=== PATIENT | male | born 1965 | race Caucasian/White ===

== ENCOUNTER → 2021-04-17 15:30 | Outpatient (CLI) | payer BC, SELFPAY ==
--- NOTE | ~2021-04-17 | XR_ITS ---
EXAMINATION: XR chest 2V DATE: 04/17/2021 16:07 INDICATION: Unspecified acute lower respiratory infection. TECHNIQUE: Frontal and lateral views of the chest were obtained. COMPARISON: None. FINDINGS: The chest demonstrates clear lungs without pneumonia, pleural effusion, or pneumothorax. Th e heart size is normal. IMPRESSION: 1. No acute cardiopulmonary disease. Reviewed, dictated and finalized at location A. MIXING OPERATOR
== END ==
PROVIDERS: Visit Provider Physician Assistant
DX: J22 Unspecified acute lower respiratory infection (principal)
CPT/HCPCS: 71046

== ENCOUNTER 2022-02-23 21:57 | Emergency (ER) | payer BC, SELFPAY ==
--- NOTE | ~2022-02-23 | CT_ITS ---
EXAMINATION: CT abdomen pelvis w con DATE: 02/24/2022 01:12 INDICATION: Right lower quadrant abdominal pain. TECHNIQUE: Computed tomography (CT) of the abdomen and pelvis was performed with 100 mL Omnipaque 350 intravenous contrast. Automated exposure control and iterative reconstruction technique were employe d. The dose-length product was 409.23 mGy-cm. COMPARISON: None. FINDINGS: The visualized portions of the lung bases demonstrate mild atelectasis. No pleural effusion . The heart size is normal. No pericardial effusion. There is a small sliding hiatal hernia. There ar e cysts in the liver measuring up to 2.3 cm. There are gallstones in the gallbladder. The spleen, palmer creas, adrenal glands, and left kidney are normal. There is a 4 mm cyst in right kidney. There is a l eft inguinal hernia containing fat. There are no dilated loops of bowel. The appendix is normal. Ther e are no pathologically enlarged lymph nodes. There is no free intraperitoneal fluid. There is mild l umbar spondylosis. There is a hemangioma in L1 vertebral body. IMPRESSION: 1. Cholelithiasis. 2. Small sliding hiatal hernia. Reviewed, dictated and finalized at location A. SYSTEMS ENGINEER
[2022-02-23 21:59] VITALS: BP 163/95; PULSE 78; RESP 20; TEMP 36.5; O2SAT 100
[2022-02-23 22:11] LABS: Basophils Percent Auto 0.3 % (0.2-1.2); Eosinophils Absolute Auto 0.6 K/mm3 (0-0.3); Eosinophils Percent Auto 6.2 % (0-4.4); Hematocrit 43.7 % (42.0-52.0); Hemoglobin 14.7 g/dL (14.0-18.0); Immature Granulocyte Absolute 0.03 K/mm3 (0.00-0.031); Immature Granulocyte Percent A 0.3 % (0-0.5); Lymphocytes Absolute Auto 3.19 K/mm3 (0.9-3.2); Lymphocytes Percent Auto 32.9 % (18.3-44.2); Mean Corpuscular HGB Conc 33.6 g/dl (32-36); Mean Corpuscular Hemoglobin 28.7 pg (26-34); Mean Corpuscular Volume 85.4 fl (80-100); Mean Platelet Volume 9.4 fl (7.4-10.4); Monocytes Absolute Auto 0.9 K/mm3 (0.1-0.6); Monocytes Percent Auto 9.5 % (2.6-8.5); Neutrophils Absolute Auto 4.9 K/mm3 (1.3-6.7); Neutrophils Percent Auto 50.8 % (45.5-73.1); Platelet Count Result 250 k/mm3 (150-375); Red Blood Count 5.12 M/mm3 (4.6-6.20); White Blood Count 9.7 K/mm3 (4.5-10.0)
[2022-02-23 22:15] LABS: Appearance Urine Clear (Clear); Bilirubin Urine 1+ (Negative); Blood Urine Negative (Negative); Color Urine Yellow (Yellow); Glucose Urine UA Negative (Negative); Ketones Urine Trace mg/dL (Negative); Leukocyte Esterase Ur Negative LEU/UL (Negative); Nitrate Urine Negative (Negative); Protein Urine Negative (Negative); Specific Grav Ur >= 1.030 (1.001-1.035); pH Urine 5.5 (5.0-9.0)
[2022-02-23 22:20] LABS: Bacteria Urine Trace /hpf; Mucus Urine Rare /lpf; RBC Urine 0-2 /hpf (0-2); WBC Urine 0-3 /hpf
[2022-02-23 22:22] LABS: Add Urine Microscopic? YES
[2022-02-23 22:25] LABS: Alanine Aminotransferase 27 U/L (6-50); Albumin Level 4.6 g/dL (3.5-5.1); Alkaline Phosphatase 80 U/L (38-126); Anion Gap 11 mmol/L (8-16); Aspartate Amino Transferase 30 U/L (17-59); Bilirubin,Total 0.4 mg/dL (0.2-1.3); Blood Urea Nitrogen 28 mg/dL (9-20); Calcium 8.9 mg/dL (8.4-10.2); Carbon Dioxide 26 mmol/L (22-30); Chloride 104 mmol/L (98-107); Estimated CRCL calculation 59 ml/min; Estimated Glomerular Filt Rate > 60; Glucose 120 mg/dL (65-110); Lipase 127 U/L (23-300); Potassium 3.6 mmol/L (3.4-5.0); Sodium 141 mmol/L (137-145)
--- NOTE | 2022-02-24 00:28 | ED.ABDPAIN ---
HPI - Abdominal Pain General Chief Complaint: Abdominal Pain Stated Complaint: abd pain Time Seen by Provider: 02/24/22 00:03 History of Present Illness HPI narrative: This is a 56-year-old male with past medical history of hyperlipidemia and GERD, presenting the emergency department complaining of epigastric and right lower quadrant abdominal pain beginning this evening. He states he was in his normal state of health, approximately 4 hours ago when he drank a soda and felt a sudden onset abdominal pain. The pain is described as dull, constant, greatest in the epigastric and the right lower quadrant region without radiation. He denies associated fevers, chills, vomiting, diarrhea or bleeding from any source. Related Data Allergies Allergy/AdvReac Type Severity Reaction Status Date / Time Trees Allergy Unknown Unknown Uncoded 02/23/22 22:01 Review of Systems Review of Systems: CONSTITUTIONAL: Denies fever, chills, or sweats. EYES: Denies visual changes, redness, or discharge. ENT: Denies rhinorrhea, congestion, sore throat, or otalgia. CARDIOVASCULAR: Denies chest pain, palpitations, or edema. RESPIRATORY: Denies cough or dyspnea. GASTROINTESTINAL: Abdominal pain, nausea denies vomiting, or diarrhea. GENITOURINARY: Denies dysuria or hematuria. SKIN: Denies rash or itching. MUSCULOSKELETAL: Denies back pain, joint pain, or myalgia. NEUROLOGIC: Denies headache, numbness, dizziness, or weakness. PSYCHIATRIC: Denies anxiety or depression. [facility] Past Medical History Medical History Acute bilateral low back pain with bilateral sciatica Acute sinusitis Arthritis Claustrophobia Colon cancer screening Elevated blood sugar Gastroesophageal reflux disease without esophagitis GERD (gastroesophageal reflux disease) HLD (hyperlipidemia) Impacted cerumen of right ear Lumbar disc disease Mixed hyperlipidemia Mixed hyperlipidemia Pain of upper abdomen Prediabetes SOB (shortness of breath) on exertion Stress Tinnitus, bilateral Vasovagal syncope Wellness examination Surgical History Surgical History H/O sinus surgery H/O thumb surgery Family History Family History Mother Family history of rheumatoid arthritis Social History Social History Smoking status: Never smoker Second hand tobacco smoke exposure: No Alcohol intake: current Substance use: never Substance use type: does not use Additional occupation/education comments: [employer] Gender identity (if verbalized by the patient): Male Exam Narrative: GENERAL: Well-developed, well-nourished, appears uncomfortable HEAD: Normocephalic, atraumatic. EYES: PERRLA and EOMI. ENT: Nares clear, no rhinorrhea or epistaxis. Mucous membranes moist. Oropharynx without tonsillar hypertrophy exudate or other lesions. NECK: Supple. No adenopathy or masses. No carotid bruits or JVD CHEST: Clear to auscultation. No respiratory distress. No wheezes rales or rhonchi HEART: Regular rate and rhythm. No murmur heard. Normal peripheral pulses. ABDOMEN: Soft, tender to palpation, greatest in the epigastric and right lower quadrant with passive guarding but without rebound, nondistended, normal active bowel sounds. No CVA tenderness to palpation EXTREMITIES: Normal range of motion. No edema. SKIN: Warm, dry, no rash. NEURO: No focal deficits. Alert and oriented x3. PSYCH: Normal mood and affect. Course Course Emergency Course: 03:30 - Labs unremarkable. [facility] CT shows findings consistent with colitis of transverse, descending and sigmoid colon, small bilateral fat-containing inguinal hernias without changes concerning for incarceration, perforation or other acute processes. On reevaluation, the patient's pain is improved and he tolerated p.o. Will d
[2022-02-24] MEDS: SODIUM CHLORIDE 0.9% IV 1,000 ML 999 ML IV CONT (00:45)
[2022-02-24] MEDS: MORPHINE SULFATE (*CRX) 4 MG/ML INJ 6 MG IV PUSH (00:45)
[2022-02-24] MEDS: oxyCODONE/ACETAMINOPHEN (*CRX) 5-325 MG TABLET 1 TABLET PO (02:43)
[2022-02-24 05:02] VITALS: BP 140/77; PULSE 78; RESP 18; O2SAT 98
== END 2022-02-24 05:05 | disposition home or self-care (01) ==
PROVIDERS: Emergency Medicine; Emergency Provider Preventive Medicine Aerospace Medicine; PCP Family Medicine
DX: K52.9 Noninfective gastroenteritis and colitis, unspecified (principal); E78.2 Mixed hyperlipidemia; M19.90 Unspecified osteoarthritis, unspecified site; K21.9 Gastro-esophageal reflux disease without esophagitis; R73.03 Prediabetes
CPT/HCPCS: 36415; 74177; 80053; 81001; 83690; 85025; 96361; 96374; 99284; A9270; J2270; J7030; Q9967

== ENCOUNTER 2024-01-31 02:05 | Day surgery (SDC) | payer BC, SELFPAY ==
[2024-01-13 14:46] VITALS: BMI 33.5
[2024-01-31 06:32] VITALS: BP 124/79; PULSE 78; RESP 16; TEMP 35.8; O2SAT 99; BMI 32.9
[2024-01-31] MEDS: LACTATED RINGERS 1,000 ML 150 ML IV CONT (06:38)
--- NOTE | 2024-01-31 06:58 | WPDANESEPPF ---
Anes - Initial Pre Proc Eval Procedure: Operation Date: 01/31/24 07:30 Proposed Procedures p Colonoscopy - Wilber Harper MD Date/Time: 01/31/24 06:58 Surgeon: Wilber Harper MD Pre Op Diagnosis: Personal history colon polyps Patient Data Age: 58 Gender: M Height: 1.52 m Weight: 76.5 kg Last Vital Signs Temp 35.8 C L 01/31/24 06:32 Pulse 78 01/31/24 06:32 Resp 16 01/31/24 06:32 BP 124/79 01/31/24 06:32 Pulse Ox 99 01/31/24 06:32 O2 Del Method Room Air 01/31/24 06:32 Allergies Allergy/AdvReac Type Severity Reaction Status Date / Time Trees Allergy Unknown Unknown Uncoded 01/31/24 06:18 Home Medications Medication Instructions Recorded Confirmed Type acetaminophen 500 mg capsule 1,000 mg PO Q8H PRN fever or pain 02/24/22 01/13/24 Rx #60 caps ibuprofen 200 mg tablet 600 mg PO Q6H PRN Pain 09/03/22 01/13/24 History omeprazole 40 mg capsule,delayed 40 mg PO DAILY #90 caps 04/02/23 01/13/24 Rx release atorvastatin 10 mg tablet 10 mg PO DAILY #90 tabs 09/07/23 01/13/24 Rx sildenafil 100 mg tablet (Viagra) 100 mg PO DAILY PRN sexual 09/07/23 01/13/24 Rx activity #10 tabs indomethacin 50 mg capsule 50 mg PO BID PRN joint pain 10 01/25/24 01/31/24 Rx days #20 caps Patient hx anesthesia problems: none Family hx anesthesia problems: none Results Review: All pre-operative results and documents have been reviewed as part of the pre-operative evaluation. [facility] Past Medical History Medical History Acute bilateral low back pain with bilateral sciatica Acute sinusitis Arthritis Claustrophobia Colon cancer screening Elevated blood sugar Gastroesophageal reflux disease without esophagitis GERD (gastroesophageal reflux disease) HLD (hyperlipidemia) Impacted cerumen of right ear Lumbar disc disease Mixed hyperlipidemia Mixed hyperlipidemia Pain of upper abdomen Prediabetes SOB (shortness of breath) on exertion Stress Tinnitus, bilateral Vasovagal syncope Wellness examination Surgical History Surgical History H/O sinus surgery H/O thumb surgery Hx of elbow surgery Family History Family History Mother Family history of rheumatoid arthritis Social History Social History Smoking status: Never smoker Second hand tobacco smoke exposure: No Alcohol intake: never Alcohol use details: seldom; socially. 4 beers/month Substance use: never Substance use type: does not use Lack of Transportation: No Lack of Food: Never True Current Housing: I Have Housing Concerned About Future Housing: No Difficulty Paying Gas/Electric Bills: No Difficulty Paying for Meds: No Currently Unemployed: No Education: Associate Degree Difficulty w/ Childcare or Family Care: No Living arrangements: with family Occupation/Education: occupation Additional occupation/education comments: [employer] Gender identity (if verbalized by the patient): Male Spiritual care concerns: No Anes - Eval Final PreProcedure Day of Procedure 01/31/24 06:58 Patient weight: obese Heart: regular rate and rhythm Lungs: clear to auscultation Airway: Mallampati scale class II Neurological: alert and oriented Last oral intake: >/= 8 hours ASA classification: III Emergent: no Anesthetic plan: proceed Anesthesia type and monitoring: general GIVS and standard monitoring Results Review: All pre-operative results and documents have been reviewed as part of the pre-operative evaluation. Informed Consent: The patient's anesthetic plan and its attendant risks and benefits were discussed with the patient/family/POA. Questions were solicited and answers provided to the satisfaction of the patient/family/POA.
--- NOTE | 2024-01-31 07:15 | PM.HPGS ---
History of Present Illness History of Present Illness Consent: Risks, benefits, and alternatives have been discussed and questions answered. Patient agrees to proceed with procedure. Chief complaint: Personal history colon polyps Narrative: Johnson Henson is a 58 year old male with colon polyp in 6 years Review of Systems Review of Systems: All systems reviewed & are unremarkable except as noted in HPI and below PMFSH Past Medical History Medical History Acute bilateral low back pain with bilateral sciatica Acute sinusitis Arthritis Claustrophobia Colon cancer screening Elevated blood sugar Gastroesophageal reflux disease without esophagitis GERD (gastroesophageal reflux disease) HLD (hyperlipidemia) Impacted cerumen of right ear Lumbar disc disease Mixed hyperlipidemia Mixed hyperlipidemia Pain of upper abdomen Prediabetes SOB (shortness of breath) on exertion Stress Tinnitus, bilateral Vasovagal syncope Wellness examination Surgical History Surgical History H/O sinus surgery H/O thumb surgery Hx of elbow surgery Family History Family History Mother Family history of rheumatoid arthritis Social History Social History Smoking status: Never smoker Second hand tobacco smoke exposure: No Alcohol intake: never Alcohol use details: seldom; socially. 4 beers/month Substance use: never Substance use type: does not use Lack of Transportation: No Lack of Food: Never True Current Housing: I Have Housing Concerned About Future Housing: No Difficulty Paying Gas/Electric Bills: No Difficulty Paying for Meds: No Currently Unemployed: No Education: Associate Degree Difficulty w/ Childcare or Family Care: No Living arrangements: with family Occupation/Education: occupation Additional occupation/education comments: [employer] Gender identity (if verbalized by the patient): Male Spiritual care concerns: No Meds Home Medications and Allergies Home Medications Medication Instructions Recorded Confirmed Type acetaminophen 500 mg capsule 1,000 mg PO Q8H PRN fever or pain 02/24/22 01/13/24 Rx #60 caps ibuprofen 200 mg tablet 600 mg PO Q6H PRN Pain 09/03/22 01/13/24 History omeprazole 40 mg capsule,delayed 40 mg PO DAILY #90 caps 04/02/23 01/13/24 Rx release atorvastatin 10 mg tablet 10 mg PO DAILY #90 tabs 09/07/23 01/13/24 Rx sildenafil 100 mg tablet (Viagra) 100 mg PO DAILY PRN sexual 09/07/23 01/13/24 Rx activity #10 tabs indomethacin 50 mg capsule 50 mg PO BID PRN joint pain 10 01/25/24 01/31/24 Rx days #20 caps Allergies Allergy/AdvReac Type Severity Reaction Status Date / Time Trees Allergy Unknown Unknown Uncoded 01/31/24 06:18 Vital Signs Vital Signs - 24 hr 01/31/24 06:32 Temperature 96.4 F L Pulse Rate 78 Respiratory Rate 16 Blood Pressure 124/79 Pulse Oximetry 99 Oxygen Delivery Room Air Exam Const: General: comfortable and no acute distress HENMT: Face/Nose/Sinus: Normal nares present Eyes: General: appearance normal, both eyes and all related structures Neck: Neck: no JVD Resp: Auscultation: clear to auscultation bilaterally Cardio: Rate: regular rate Rhythm: regular rhythm GI: Inspection: non-distended GI Palp: Yes Soft to palpation Skin: General skin exam: normal color Neuro: General: gait normal Speech: normal speech Extrem: General: normal to inspection Psych: Mental Status: mental status grossly normal Assessment and Plan Assessment and plan (1) Personal history of colonic polyps: Code(s): Z86.010 - Personal history of colon polyps Status: Acute Assessment and Plan: colonoscopy
[2024-01-31 07:38] VITALS: BP 107/65; PULSE 79; RESP 20; O2SAT 98
[2024-01-31 07:48] VITALS: BP 111/77; PULSE 73; RESP 20; O2SAT 98
[2024-01-31 07:58] VITALS: BP 116/76; PULSE 69; RESP 18; O2SAT 98
== END 2024-01-31 08:05 | disposition home or self-care (01) ==
PROVIDERS: PCP Family Medicine; Visit Provider Internal Medicine Gastroenterology
PROC: 0DJD8ZZ Inspection of Lower Intestinal Tract, Via Natural or Artificial Opening Endoscopic (ICD-10-PCS; CPT 45378; principal; 2024-01-31 07:30)
DX: Z12.11 Encounter for screening for malignant neoplasm of colon (principal); K64.8 Other hemorrhoids; E78.2 Mixed hyperlipidemia; R73.03 Prediabetes; K21.9 Gastro-esophageal reflux disease without esophagitis; F40.240 Claustrophobia; E66.9 Obesity, unspecified; Z68.32 Body mass index [BMI] 32.0-32.9, adult; Z79.1 Long term (current) use of non-steroidal anti-inflammatories (NSAID); Z98.890 Other specified postprocedural states; Z86.0100 Personal history of colon polyps, unspecified
CPT/HCPCS: 45378; J2003; J2704; J7120

== ENCOUNTER 2024-06-27 09:45 | Outpatient (CLI) | payer BC, SELFPAY ==
--- OUTSIDE RECORDS SUMMARY | 2024-06-27 10:51 | XMS_ITS | Clinical Summary ---
Author Organization [facility] Address [address] [address] Phone Care Team Providers Care Ton Cylinder Inspector Name Role Phone Amy Caraballo MD Primary Care Provider [phone] Allergies No known active allergies Medications RaNITIdine HCl 300 MG Capsule TK 1 C PO QD HS 0 02/20/2018 Active Multiple Vitamin (MULTI-VITAMIN PO) Take 1 Tab by mouth daily. Active Family History Medical History Relation Name Comments Aneurysm Father brain Cancer Maternal Aunt 1 brain Cancer Maternal Aunt 2 breast Rheumatoid Arthritis Mother Cancer Other cousin prostate High Cholesterol Sister Hypertension Sister Relation Name Status Comments Father after surg paty for aneurysm Maternal Aunt 1 Maternal Aunt 2 Mother Other cousin Alive Sister Social History Tobacco Use Types Packs/Day Years Used Date Smoking Tobacco: Never Smokeless Tobacco: Never Sex and Gender Information Value Date Recorded Sex Assigned at Not on file Legal Sex Male 3:10 PM YARD CRANE OPERATOR Gender Identity Not on file Sexual Orientation Not on file Last Filed Vital Signs Vital Sign Reading Time Taken Comments Blood Pressure 105/88 03/25/2018 7:07 AM YARD CRANE OPERATOR Pulse 84 03/25/2018 7:07 AM YARD CRANE OPERATOR Temperature 37 C (98.6 F) 03/25/2018 7:07 AM YARD CRANE OPERATOR Respiratory Rate 14 03/25/2018 7:07 AM YARD CRANE OPERATOR Oxygen Saturation 99% 03/25/2018 7:07 AM YARD CRANE OPERATOR Inhaled Oxygen Concentration - - Weight 79.4 kg (175 lb) 03/25/2018 5:45 AM YARD CRANE OPERATOR Height 170.2 cm (5' 7 ) 03/25/2018 5:45 AM YARD CRANE OPERATOR Body Mass Index 27.41 03/25/2018 5:45 AM YARD CRANE OPERATOR Plan of Treatment Health Maintenance Due Date Last Done Comments Hepatitis C Virus (HCV) Screening 1967 TdaP Immunization 1967 Hepatitis B Immunization (1 of 3 - 19+ 3-dose series) 1986 Cologuard 2017 Immunochemical Fecal Occult Blood 2017 Pneumococcal Immunization (5 0+ years) (1 of 1 - PCV) 2017 Zoster Immunization (1 of 2) 2017 PSA Discussion 2022 Colonoscopy 03/25/2023 03/25/2018 Colorectal Cancer Screening 03/25/2023 Influenza Immunization (#1) 2023 SARS-COV-2 Immunization (1 - season) 2023 Respiratory Syncytial Virus (RSV) Immunization (Adult) (1 - 1-dose 75+ series) 2042 03/25/2018 Meningococcal Immunization (ACWY) Aged Out No longer eligible based on patient's age to complete this topic Pneumococcal Immunization Combined Aged Out No longer eligible based on patient's age to complete this topic Rotavirus Immunization Aged Out No lo nger eligible based on patient's age to complete this topic Insurance [facility] Care Teams Ton Cylinder Inspector Relationship Specialty Start Date End Date Amy Caraballo MD [address] [place] [address] PCP - General Family Medicine 02/25/18
--- OUTSIDE RECORDS SUMMARY | 2024-06-27 10:51 | XMS_ITS | Encounter Summary ---
Author Organization [facility] Address [address] [place] [address] Care Team Providers Care Professor Of Political Science Name Role Phone Unavailable Primary Care Provider Unavailabl e Encounter Details Date Type Department Care Team (Late st Contact Info) Description 06/15/2023 Lab Requisition [facility] - DermPath Lab [address] [facility] [place] [address] Leny Richards DO [address] [facility] [address] [place] [address] Social History Tobacco Use Types Packs/Day Years Used Date Smoking Tobacco: Never Assessed Sex and Gender Information Value Date Recorded Sex Assigned at Not on file Gender Identity Not on file Sexual Orientation Not on file documented as of this encounter Plan of Treatment Not on file documented as of this encounter Procedures Procedure Name Priority Date/Time Associated Diagnosis Comments DERMATOPATHOLOGY Routine 06/15/2023 3:01 PM MANAGER BUSINESS CONTINUITY documented in this encounter Results * DERMATOPATHOLOGY (06/15/2023 3:01 PM MANAGER BUSINESS CONTINUITY) Case Report Dermatopathology Report Case: [id number] Authorizing Provider: Leny Richards DO Collected: 06/15/2023 03:01 PM Ordering Location: [facility] - Received: 06/16/2023 01:12 PM DermPath Lab Pathologist: Rosemarie Henson MD Specimen: Skin, post crown 4 2:29 PM MANAGER BUSINESS CONTINUITY DERMATOPATHOLOGY LABORATORY Final Diagnosis Specimen A. SKIN, post crown: BENIGN VERRUCOUS KERATOSIS (L82.1) 4 2:29 PM MANAGER BUSINESS CONTINUITY DERMATOPATHOLOGY LABORATORY Clinical History R/O NMSC 4 2:29 PM MANAGER BUSINESS CONTINUITY DERMATOPATHOLOGY LABORATORY Gross Description Specimen A: Received is one formalin filled container labeled with the patient's name and designated post crown. The specimen consists of a shave biopsy measuring 6x5x2 mm. Jar 0. 4 2:29 PM [facility] DERMATOPATHOLOGY [facility]ORATORY Microscopic Description Specimen A. SKIN, post crown: Sections show hyperkeratosis, papillomatosis, hypergranulosis, and acanthosis. These histological findings can be seen in a verruca vulgaris or a seborrheic keratosis. 4 2:29 PM [facility] DERMATOPATHOLOGY [facility]ORATORY Disclaimer An external and internal positive and negative controls are appropriate for the histochemical, immunohistochemical and immunofluorescence stain(s) in this case (if any), except where stated explicitly. The performance characteristics of the stain(s) cited in this report were developed and its performance characteristic determined by the Dermatopathology Laboratory at [facility], directed by Dr. Jessica Etienne. These tests need not be, and therefore are not, approved by the [place] Food and Drug Administration. The tests are used for clinical purposes. Billing Codes Specimen Charges Stain Charges 60384 1 4 2:29 PM [facility] DERMATOPATHOLOGY [facility]ATORY Embedded Images 4 2:29 PM [facility] DERMATOPATH[facility]Y [facility]ORY Pathology/Cytolo gy TISSUE SPECIMEN FROM SKIN / Unknown 06/15/2023 3:01 PM MANAGER BUSINESS CONTINUITY 06/16/2023 1:12 PM MANAGER BUSINESS CONTINUITY Leny Richards DO LAB - PATHOLOGY/C YTOLOGY ORDERABLES DERMATOPATHOLOGY LABORATORY [facility] - Department of Dermatology [address] [phone] documented in this encounter Visit Diagnoses Not on filedocumented in this encounter
--- OUTSIDE RECORDS SUMMARY | 2024-06-27 10:51 | XMS_ITS | Clinical Summary ---
Author Organization [facility] Address [address] [place] [address] Care Team Providers Care Sociology Professor Name Role Phone Unavailable Primary Care Provider Unavailabl e Source Comments [facility],non-owned Affiliates and Associated Physician Practices is amultiple site organization consisting of ambulatory clinics and hospital sitesin [place], [place], [place] and [place]. This disclosure is being madepursuant to the Care Everywhere program and may not contain all information available regarding this patient. Last updated 17.[facility] Social History Tobacco Use Types Packs/Day Years Used Date Smoking Tobacco: Never Assessed Sex and Gender Information Value Date Recorded Sex Assigned at Not on file Gender Identity Not on file Sexual Orientation Not on file Plan of Treatment Health Maintenance Due Date Last Done Comments COLOGUARD (AGES 45-75) - COL ON CA SCREENING 1967 COLON MONITORING 1967 COLONOSCOPY - COLON CA SCREENING 1967 CT COLONOGRAPHY - COLON CA SCREENING 1967 Colorectal Cancer Screening 1967 FIT - COLON CA SCREENING 1967 FLEX SIG - COLON CA SCREENING 1967 LIPID TESTING 1967 HIV SCREENING 1982 HEPATITIS C SCREENING 05/07/1985 DTAP/TDAP/TD VACCINES (1 - Tdap) 1986 HEPATITIS B VACCINE (1 of 3 - 19+ 3-dose series) 1986 PNEUMOCOCCAL VACCINE 50+ (1 of 1 - PCV) 2017 ZOSTER VACCINE (1 of 2) 2017 COVID-19 VACCINE ( - 2023-2 5 season) 2023 INFLUENZA VACCINE (#1) 2023 DEPRESSION SCREENING 04/12/2024 HIB VACCINE Aged Out No longer eligi ble based on patient's age to complete this topic HPV VACCINE Aged Out No longer eligi ble based on patient's age to complete this topic MENINGOCOCCAL (Group B) VACC INE SHARED DECISION-MAKING Aged Out No longer eligibl e based on patient's age to complete this topic MENINGOCOCCAL GROUPS A/C/Y/W VACCINE Aged Out No longer eligible b ased on patient's age to complete this topic PNEUMOCOCCAL VACCINE Aged Out No long er eligible based on patient's age to complete this topic
[2024-06-27 10:54] LABS: Basophils Percent Auto 0.2 % (0.2-1.2); Eosinophils Absolute Auto 0.3 K/mm3 (0-0.3); Eosinophils Percent Auto 2.8 % (0-4.4); Hematocrit 43.2 % (42.0-52.0); Hemoglobin 14.8 g/dL (14.0-18.0); Immature Granulocyte Absolute 0.03 K/mm3 (0.00-0.031); Immature Granulocyte Percent A 0.3 % (0-0.5); Lymphocytes Absolute Auto 2.05 K/mm3 (0.9-3.2); Lymphocytes Percent Auto 22.8 % (18.3-44.2); Mean Corpuscular HGB Conc 34.3 g/dl (32-36); Mean Corpuscular Hemoglobin 29.4 pg (26-34); Mean Corpuscular Volume 85.7 fl (80-100); Mean Platelet Volume 9.7 fl (7.4-10.4); Monocytes Absolute Auto 0.8 K/mm3 (0.1-0.6); Neutrophils Absolute Auto 5.8 K/mm3 (1.3-6.7); Neutrophils Percent Auto 64.9 % (45.5-73.1); Platelet Count Result 232 k/mm3 (150-375); Red Blood Count 5.04 M/mm3 (4.6-6.20); Red Cell Distribution Width 12.4 % (11.5-14.5)
[2024-06-27 11:02] LABS: Alanine Aminotransferase 27 U/L (6-50); Albumin Level 4.4 g/dL (3.5-5.1); Alkaline Phosphatase 74 U/L (38-126); Anion Gap 10 mmol/L (4-12); Aspartate Amino Transferase 25 U/L (17-59); Bilirubin,Total 0.6 mg/dL (0.2-1.3); Blood Urea Nitrogen 22 mg/dL (9-20); Calcium 9.3 mg/dL (8.4-10.2); Carbon Dioxide 26 mmol/L (22-30); Chloride 106 mmol/L (98-107); Estimated Glomerular Filt Rate > 60; Glucose 90 mg/dL (65-110); Lipase 146 U/L (23-300); Potassium 3.8 mmol/L (3.4-5.0); Sodium 142 mmol/L (137-145)
== END 2024-06-27 09:46 | disposition home or self-care (01) ==
PROVIDERS: PCP Family Medicine; Visit Provider Family Medicine
DX: R10.9 Unspecified abdominal pain (principal); K80.20 Calculus of gallbladder without cholecystitis without obstruction
CPT/HCPCS: 36415; 80053; 83690; 85025

== ENCOUNTER 2024-06-28 06:42 | Outpatient (CLI) | payer BC, SELFPAY ==
--- NOTE | ~2024-06-28 | US_ITS ---
Limited Abdominal Sonogram: Real-time sonographic imaging of the right upper quadrant was performed. Clinical History: Abdominal pain Findings: The liver appears normal with no evidence of mass lesion or bile duct dilatation. Main por home vein demonstrates normal direction of flow. The gallbladder is well distended, and contains numer ous echogenic, shadowing gallstones. No gallbladder wall thickening evident. The common bile duct mendez sures 4 mm. The visualized pancreas, aorta, and IVC are unremarkable. Impression: Cholelithiasis. Reviewed, dictated and finalized at location M. Impression: Cholelithiasis.
--- OUTSIDE RECORDS SUMMARY | 2024-06-28 06:45 | XMS_ITS | Encounter Summary ---
Author Organization [facility] Address [address] [place] [address] Care Team Providers Care Antiquer Name Role Phone Unavailable Primary Care Provider Unavailabl e Encounter Details Date Type Department Care Team (Late st Contact Info) Description 06/15/2023 Lab Requisition [facility] - DermPath Lab [address] [facility], [place] [address] Leny Richards DO [address] [facility] 3 [place] [address] Social History Tobacco Use Types Packs/Day Years [...] Diagnosis Comments DERMATOPATHOLOGY Routine 06/15/2023 3:01 PM DIE CASTING MACHINE OPERATOR documented in this encounter Results * DERMATOPATHOLOGY (06/15/2023 3:01 PM DIE CASTING MACHINE OPERATOR) Case Report Dermatopathology Report Case: [id number] Authorizing Provider: Leny Richards DO Collected: 06/15/2023 03:01 PM Ordering Location: [facility] - Received: 06/16/2023 01:12 PM DermPath Lab Pathologist: Rosemarie Henson MD Specimen: Skin, post crown 4 2:29 PM DIE CASTING MACHINE OPERATOR DERMATOPATHOLOGY LABORATORY Final Diagnosis Specimen A. SKIN, post crown: BENIGN VERRUCOUS KERATOSIS (L82.1) 4 2:29 PM DIE CASTING MACHINE OPERATOR DERMATOPATHOLOGY LABORATORY Clinical History R/O NMSC 4 2:29 PM DIE CASTING MACHINE OPERATOR DERMATOPATHOLOGY LABORATORY Gross Description Specimen A: Received is one formalin filled container labeled with the patient's name and designated post crown. The specimen consists of a shave biopsy measuring 6x5x2 mm. Jar 0. 4 2:29 PM [facility] DERMATOPATHOLOGY LABORATORY Microscopic Description Specimen A. SKIN, post crown: Sections show hyperkeratosis, papillomatosis, hypergranulosis, and acanthosis. These histological findings can be seen in a verruca vulgaris or a seborrheic keratosis. 4 2:29 PM [facility] DERMATOPATHOLOGY LABORATORY Disclaimer An external and internal positive and negative controls are appropriate for the histochemical, immunohistochemical and immunofluorescence stain(s) in this case (if any), except where stated explicitly. The performance characteristics of the stain(s) cited in this report were developed and its performance characteristic determined by the Dermatopathology Laboratory at [facility], directed by Dr. Jessica Etienne. These tests need not be, and therefore are not, approved by the [place] Food and Drug Administration. The tests are used for clinical purposes. Billing Codes Specimen Charges Stain Charges 38317 1 4 2:29 PM [facility] DERMATOPATHOLOGY LABORATORY Embedded Images 4 2:29 PM [facility] DERMATOPATHOLOGY LABORATORY Pathology/Cytolo gy TISSUE SPECIMEN FROM SKIN / Unknown 06/15/2023 3:01 PM DIE CASTING MACHINE OPERATOR 06/16/2023 1:12 PM DIE CASTING MACHINE OPERATOR Leny Richards DO LAB - PATHOLOGY/C YTOLOGY ORDERABLES DERMATOPATHOLOGY LABORATORY [facility] - Department of Dermatology [address], [address] [phone] documented in this encounter Visit Diagnoses Not on filedocumented in this encounter
--- OUTSIDE RECORDS SUMMARY | 2024-06-28 06:45 | XMS_ITS | Clinical Summary ---
Author Organization [facility] Address [address] [place] [address] Care Team Providers Care Lucerne Farmer Name Role Phone Unavailable Primary Care Provider Unavailabl e Source Comments [facility],non-owned Affiliates and Associated Physician Practices is amultiple site organization consisting of ambulatory clinics and hospital sitesin [place], [place], [place] and [place]. This disclosure is being madepursuant to the Care Everywhere program and may not contain all information available regarding this patient. Last updated 17.[facility] Social History Tobacco Use Types Packs/Day Years [...]
--- OUTSIDE RECORDS SUMMARY | 2024-06-28 06:45 | XMS_ITS | Clinical Summary ---
Author Organization [facility] Address [address] [address] Phone Care Team Providers Care Pharmacy Intake Technician Name Role Phone Amy Caraballo MD Primary Care Provider [phone] Allergies No known active allergies Medications RaNITIdine [...] on file Legal Sex Male 3:10 PM CHICKEN CLEANER Gender Identity Not on file Sexual Orientation Not on file Last Filed Vital Signs Vital Sign Reading Time Taken Comments Blood Pressure 105/88 03/25/2018 7:07 AM CHICKEN CLEANER Pulse 84 03/25/2018 7:07 AM CHICKEN CLEANER Temperature 37 C (98.6 F) 03/25/2018 7:07 AM CHICKEN CLEANER Respiratory Rate 14 03/25/2018 7:07 AM CHICKEN CLEANER Oxygen Saturation 99% 03/25/2018 7:07 AM CHICKEN CLEANER Inhaled Oxygen Concentration - - Weight 79.4 kg (175 lb) 03/25/2018 5:45 AM CHICKEN CLEANER Height 170.2 cm (5' 7 ) 03/25/2018 5:45 AM CHICKEN CLEANER Body Mass Index 27.41 03/25/2018 5:45 AM CHICKEN CLEANER Plan of Treatment Health Maintenance Due Date [...] patient's age to complete this topic Insurance [facility] Care Teams Pharmacy Intake Technician Relationship Specialty Start Date End Date Amy Caraballo MD [address] [place] [address] PCP - General Family Medicine 02/25/18
== END 2024-06-28 06:43 | disposition home or self-care (01) ==
PROVIDERS: PCP Family Medicine; Visit Provider Family Medicine
DX: K80.20 Calculus of gallbladder without cholecystitis without obstruction (principal)
CPT/HCPCS: 76705

== ENCOUNTER 2024-07-04 14:22 | Outpatient (CLI) | payer BC, SELFPAY ==
--- NOTE | 2024-07-04 14:34 | ECG_ITS ---
Test Date: 2024-07-04 14:57:40 Measurements Intervals [place] Rate: 80 P: 38 HI: 129 QRS: 28 QRSD: 94 T: 14 QT: 382 QTc: 442 Interpretive Statements SINUS RHYTHM WITH SINUS ARRHYTHMIA WARNING: DATA QUALITY MAY AFFECT INTERPRETATION No previous ECG available for comparison Electronically Signed On 07-04-2024 16:49:31 CDT by Aleena Phillips M.D.
[2024-07-04 15:40] LABS: Alanine Aminotransferase 24 U/L (6-50); Albumin Level 4.1 g/dL (3.5-5.1); Alkaline Phosphatase 70 U/L (38-126); Amylase 60 U/L (30-110); Aspartate Amino Transferase 23 U/L (17-59); Basophils Percent Auto 0.3 % (0.2-1.2); Bilirubin,Total 0.3 mg/dL (0.2-1.3); Eosinophils Absolute Auto 0.2 K/mm3 (0-0.3); Eosinophils Percent Auto 2.9 % (0-4.4); Hematocrit 40.6 % (42.0-52.0); Hemoglobin 13.5 g/dL (14.0-18.0); Immature Granulocyte Absolute 0.01 K/mm3 (0.00-0.031); Immature Granulocyte Percent A 0.1 % (0-0.5); Lipase 175 U/L (23-300); Lymphocytes Absolute Auto 2.57 K/mm3 (0.9-3.2); Lymphocytes Percent Auto 32.4 % (18.3-44.2); Mean Corpuscular HGB Conc 33.3 g/dl (32-36); Mean Corpuscular Hemoglobin 28.7 pg (26-34); Mean Corpuscular Volume 86.4 fl (80-100); Mean Platelet Volume 9.6 fl (7.4-10.4); Monocytes Absolute Auto 0.7 K/mm3 (0.1-0.6); Monocytes Percent Auto 8.2 % (2.6-8.5); Neutrophils Absolute Auto 4.5 K/mm3 (1.3-6.7); Neutrophils Percent Auto 56.1 % (45.5-73.1); Platelet Count Result 245 k/mm3 (150-375); White Blood Count 7.9 K/mm3 (4.5-10.0)
--- OUTSIDE RECORDS SUMMARY | 2024-07-04 17:03 | XMS_ITS | Encounter Summary ---
Author Organization [facility] Address [address] [place] [address] Care Team Providers Care Ingot Passer Name Role Phone Unavailable Primary Care Provider Unavailabl e Encounter Details Date Type Department Care Team (Late st Contact Info) Description 06/15/2023 Lab Requisition [facility] - DermPath Lab [address], [place] [address] Leny Richards DO [address] [facility] 3 [place] [address] Social History Tobacco Use Types Packs/Day Years [...] Diagnosis Comments DERMATOPATHOLOGY Routine 06/15/2023 3:01 PM BATCH ATTENDANT documented in this encounter Results * DERMATOPATHOLOGY (06/15/2023 3:01 PM BATCH ATTENDANT) Case Report Dermatopathology Report Case: [id number] Authorizing Provider: Leny Richards DO Collected: 06/15/2023 03:01 PM Ordering Location: [facility] - Received: 06/16/2023 01:12 PM DermPath Lab Pathologist: Rosemarie Henson MD Specimen: Skin, post crown 4 2:29 PM BATCH ATTENDANT DERMATOPATHOLOGY LABORATORY Final Diagnosis Specimen A. SKIN, post crown: BENIGN VERRUCOUS KERATOSIS (L82.1) 4 2:29 PM BATCH ATTENDANT DERMATOPATHOLOGY LABORATORY Clinical History R/O NMSC 4 2:29 PM BATCH ATTENDANT DERMATOPATHOLOGY LABORATORY Gross Description Specimen A: Received is one formalin filled container labeled with the patient's name and designated post crown. The specimen consists of a shave biopsy measuring 6x5x2 mm. Jar 0. 4 2:29 PM [facility] DERMATOPATHOLOGY LABORATORY Microscopic Description Specimen A. SKIN, post crown: Sections show hyperkeratosis, papillomatosis, hypergranulosis, and acanthosis. These histological findings can be seen in a verruca vulgaris or a seborrheic keratosis. 4 2:29 PM [facility] DERMATOPATHOLOGY LABORATORY Disclaimer An external and internal positive and negative controls are appropriate for the histochemical, immunohistochemical and immunofluorescence stain(s) in this case (if any), except where stated explicitly. The performance characteristics of the stain(s) cited in this report were developed and its performance characteristic determined by the Dermatopathology Laboratory at [facility], directed by Dr. Jessica Etienne. These tests need not be, and therefore are not, approved by the [place] Food and Drug Administration. The tests are used for clinical purposes. Billing Codes Specimen Charges Stain Charges 96387 1 4 2:29 PM [facility] DERMATOPATHOLOGY LABORATORY Embedded Images 4 2:29 PM [facility] DERMATOPATHOLOGY LABORATORY Pathology/Cytolo gy TISSUE SPECIMEN FROM SKIN / Unknown 06/15/2023 3:01 PM BATCH ATTENDANT 06/16/2023 1:12 PM BATCH ATTENDANT Leny Richards DO LAB - PATHOLOGY/C YTOLOGY ORDERABLES DERMATOPATHOLOGY LABORATORY [facility] - Department of Dermatology [address], [address] [phone] documented in this encounter Visit Diagnoses Not on filedocumented in this encounter
--- OUTSIDE RECORDS SUMMARY | 2024-07-04 17:03 | XMS_ITS | Clinical Summary ---
Author Organization [facility] [employer] Address [address] [place] [address] Care Team Providers Care Osteology Teacher Name Role Phone Unavailable Primary Care Provider Unavailabl e Source Comments [facility] [employer],non-owned Affiliates and Associated Physician Practices is amultiple site organization consisting of ambulatory clinics and hospital sitesin [place], [place], [place] and [place]. This disclosure is being madepursuant to the Care Everywhere program and may not contain all information available regarding this patient. Last updated 17.[facility] [employer] Social History Tobacco Use Types Packs/Day Years [...]
--- OUTSIDE RECORDS SUMMARY | 2024-07-04 17:03 | XMS_ITS | Clinical Summary ---
Author Organization [facility] Address [address] [address] Phone Care Team Providers Care Software Support Technician Name Role Phone Amy Caraballo MD Primary Care Provider [phone] Allergies No known active allergies Medications RaNITIdine [...] on file Legal Sex Male 3:10 PM TRADEMARK ATTORNEY Gender Identity Not on file Sexual Orientation Not on file Last Filed Vital Signs Vital Sign Reading Time Taken Comments Blood Pressure 105/88 03/25/2018 7:07 AM TRADEMARK ATTORNEY Pulse 84 03/25/2018 7:07 AM TRADEMARK ATTORNEY Temperature 37 C (98.6 F) 03/25/2018 7:07 AM TRADEMARK ATTORNEY Respiratory Rate 14 03/25/2018 7:07 AM TRADEMARK ATTORNEY Oxygen Saturation 99% 03/25/2018 7:07 AM TRADEMARK ATTORNEY Inhaled Oxygen Concentration - - Weight 79.4 kg (175 lb) 03/25/2018 5:45 AM TRADEMARK ATTORNEY Height 170.2 cm (5' 7 ) 03/25/2018 5:45 AM TRADEMARK ATTORNEY Body Mass Index 27.41 03/25/2018 5:45 AM TRADEMARK ATTORNEY Plan of Treatment Health Maintenance Due Date [...] patient's age to complete this topic Insurance [facility] Care Teams Software Support Technician Relationship Specialty Start Date End Date Amy Caraballo MD [address] [place] [address] PCP - General Family Medicine 02/25/18
== END 2024-07-04 14:23 | disposition home or self-care (01) ==
LOC: ANHSURGERY 14:33
PROVIDERS: PCP Family Medicine; Visit Provider Surgery
DX: K80.10 Calculus of gallbladder with chronic cholecystitis without obstruction (principal); Z01.818 Encounter for other preprocedural examination
CPT/HCPCS: 36415; 80076; 82150; 83690; 85025; 86850; 86900; 86901; 93005

== ENCOUNTER 2024-07-06 01:15 | Day surgery (SDC) | payer BC, SELFPAY ==
[2024-07-03 10:00] VITALS: BMI 26.6
--- NOTE | 2024-07-03 10:05 | PC.NURSE ---
Report to the Outpatient Waiting Room, entrance under the green pavilion located off [facility], at time _1230_ on date _[id number]_. Planned Procedure Time: _230pm_.? Time changes happen often and if your time is changed the preop area will call you the afternoon before. - You and your visitor will be asked to self-screen and do not enter if you have any COVID symptoms. Please call surgeon if you need to reschedule. - A mask is optional within the hospital at this time. Patients may have clear liquids (water, carbonated beverages, clear teas, apple juice) until 3 hours prior to surgery with a maximum of 20 ounces. - No food from midnight until time of surgery and no smoking, or chewing tobacco (or any form of nicotine). No chewing gum, candy or mints. Take only the following medications with a SIP of water on the morning of surgery: ___Flonase if needed.____ DO NOT STOP ANY OF YOUR OTHER PRESCRIPTION MEDICATIONS PRIOR TO SURGERY EXCEPT THE FOLLOWING Hold all vitamins and supplements for 3 days per anesthesiologist. Medications to discontinue per physician Date to take last dose Please no make-up, nail sami, hairspray, perfume, deodorant, or body powder the day of surgery.? No jewelry (including any body piercings) or valuables the day of surgery, leave them at home.? Please take a shower or bath the night before, or the morning of, surgery with an antibacterial soap.? Wear comfortable, loose fitting clothing.? - Jewelry must be removed prior to entering the operating room.? Rings and piercings that are not removed may be cut off. - The hospital will not accept responsibility for valuables.? - Please leave all valuables, including medications, at home the day of surgery. If you are going home after surgery, a licensed mail truck driver must drive you home.? - NO public transportation without another adult if you receive anesthesia. - We recommend that an adult stay with you for 24 hours following discharge. - We also recommend that you do not drive, make important decision, drink alcoholic beverages, or take any drugs that were not prescribed by your health care provider for at least 24 hours after your discharge time. Follow any additional instructions given to you from your surgeon. Telephone instructions given to __Rob___and asked if any additional questions and then verbalized understanding. Patient advised to call surgeon office or pre surgery nurse liaison [phone] if any additional questions.
[2024-07-06] VITALS (11 sets, daily range): BP systolic 102–122; BP diastolic 64–89; PULSE 58–81; RESP 11–23; TEMP 36.2–36.8; O2SAT 95–100; BMI 26.2
--- OUTSIDE RECORDS SUMMARY | 2024-07-06 01:18 | XMS_ITS | Clinical Summary ---
Author Organization [facility] Address [address] [place] [address] Care Team Providers Care Naval Aircrewman Operator Name Role Phone Unavailable Primary Care Provider Unavailabl e Source Comments [facility],non-owned Affiliates and Associated Physician Practices is amultiple site organization consisting of ambulatory clinics and hospital sitesin [place], [place], [place] and [place]. This disclosure is being madepursuant to the Care Everywhere program and may not contain all information available regarding this patient. Last updated 17.[facility] Social History Tobacco Use Types Packs/Day Years [...]
--- OUTSIDE RECORDS SUMMARY | 2024-07-06 01:18 | XMS_ITS | Clinical Summary ---
Author Organization [facility] Address [address] [address] Phone Care Team Providers Care [place] Ordinary Name Role Phone Amy Caraballo MD Primary Care Provider [phone] Allergies No known active allergies Medications RaNITIdine [...] on file Legal Sex Male 3:10 PM GLOBAL TRANSPORTATION MANAGER Gender Identity Not on file Sexual Orientation Not on file Last Filed Vital Signs Vital Sign Reading Time Taken Comments Blood Pressure 105/88 03/25/2018 7:07 AM GLOBAL TRANSPORTATION MANAGER Pulse 84 03/25/2018 7:07 AM GLOBAL TRANSPORTATION MANAGER Temperature 37 C (98.6 F) 03/25/2018 7:07 AM GLOBAL TRANSPORTATION MANAGER Respiratory Rate 14 03/25/2018 7:07 AM GLOBAL TRANSPORTATION MANAGER Oxygen Saturation 99% 03/25/2018 7:07 AM GLOBAL TRANSPORTATION MANAGER Inhaled Oxygen Concentration - - Weight 79.4 kg (175 lb) 03/25/2018 5:45 AM GLOBAL TRANSPORTATION MANAGER Height 170.2 cm (5' 7 ) 03/25/2018 5:45 AM GLOBAL TRANSPORTATION MANAGER Body Mass Index 27.41 03/25/2018 5:45 AM GLOBAL TRANSPORTATION MANAGER Plan of Treatment Health Maintenance Due Date [...] patient's age to complete this topic Insurance [facility] Care Teams [place] Ordinary Relationship Specialty Start Date End Date Amy Caraballo MD [address] [place] [address] PCP - General Family Medicine 02/25/18
--- OUTSIDE RECORDS SUMMARY | 2024-07-06 01:18 | XMS_ITS | Encounter Summary ---
Author Organization [facility] Address [address] [place] [address] Care Team Providers Care Rewriter Name Role Phone Unavailable Primary Care Provider Unavailabl e Encounter Details Date Type Department Care Team (Late st Contact Info) Description 06/15/2023 Lab Requisition [facility] - DermPath Lab [address] [facility], [place] [address] Leny Richards DO [address] [facility] [address] [place] [address] Social History Tobacco Use Types Packs/Day Years [...] Diagnosis Comments DERMATOPATHOLOGY Routine 06/15/2023 3:01 PM LOGGING WORKER documented in this encounter Results * DERMATOPATHOLOGY (06/15/2023 3:01 PM LOGGING WORKER) Case Report Dermatopathology Report Case: [id number] Authorizing Provider: Leny Richards DO Collected: 06/15/2023 03:01 PM Ordering Location: [facility] - Received: 06/16/2023 01:12 PM DermPath Lab Pathologist: Rosemarie Henson MD Specimen: Skin, post crown 4 2:29 PM LOGGING WORKER DERMATOPATHOLOGY LABORATORY Final Diagnosis Specimen A. SKIN, post crown: BENIGN VERRUCOUS KERATOSIS (L82.1) 4 2:29 PM LOGGING WORKER DERMATOPATHOLOGY LABORATORY Clinical History R/O NMSC 4 2:29 PM LOGGING WORKER DERMATOPATHOLOGY LABORATORY Gross Description Specimen A: Received is one formalin filled container labeled with the patient's name and designated post crown. The specimen consists of a shave biopsy measuring 6x5x2 mm. Jar 0. 4 2:29 PM [facility] [[email or web address] DERMATOPATHOLOGY LABORATORY Microscopic Description Specimen A. SKIN, post crown: Sections show hyperkeratosis, papillomatosis, hypergranulosis, and acanthosis. These histological findings can be seen in a verruca vulgaris or a seborrheic keratosis. 4 2:29 PM [facility] [[email or web address]] DERMATOPATHOLOGY LABORATORY Disclaimer An external and internal positive and negative controls are appropriate for the histochemical, immunohistochemical and immunofluorescence stain(s) in this case (if any), except where stated explicitly. The performance characteristics of the stain(s) cited in this report were developed and its performance characteristic determined by the Dermatopathology Laboratory at [facility], directed by Dr. Jessica Etienne. These tests need not be, and therefore are not, approved by the [place] Food and Drug Administration. The tests are used for clinical purposes. Billing Codes Specimen Charges Stain Charges 55893 1 4 2:29 PM [facility] [[email or web address]] DERMATOPATHOLOGY LABORATORY Embedded Images 4 2:29 PM [facility] [[email or web address]] DERMATOPATHOLOGY LABORATORY Pathology/Cytolo gy TISSUE SPECIMEN FROM SKIN / Unknown 06/15/2023 3:01 PM LOGGING WORKER 06/16/2023 1:12 PM LOGGING WORKER Leny Richards DO LAB - PATHOLOGY/C YTOLOGY ORDERABLES DERMATOPATHOLOGY LABORATORY [facility] - Department of Dermatology [address] [phone] documented in this encounter Visit Diagnoses Not on filedocumented in this encounter
--- NOTE | 2024-07-06 11:41 | WPDHPUPDATE1 ---
History and Physical Update Update Date/Time: 07/06/24 11:41 History and Physical has been reviewed, including an updated exam of the patient. There are NO changes in the patient's condition. Risks, benefits, and alternatives have been discussed and questions answered. Patient agrees to proceed with procedure.
[2024-07-06] MEDS: ACETAMINOPHEN 500 MG TABLET 1000 MG PO (13:19)
[2024-07-06] MEDS: LACTATED RINGERS 1,000 ML 30 ML IV CONT ×2 (13:19→15:28)
[2024-07-06] MEDS: KETOROLAC 15 MG/ML VIAL (*BKC) IV PUSH (13:20)
--- NOTE | 2024-07-06 13:45 | P.PNAN_ITS ---
Anes - Initial Pre Proc Eval Procedure: Operation Date: 07/06/24 13:30 Proposed Procedures p Laparoscopic Cholecystectomy - Ludwin Guevara MD Date/Time: 07/06/24 13:45 Surgeon: Ludwin Guevara MD Pre Op Diagnosis: Chronic Cholecystitis with Stones Patient Data Age: 59 Gender: M Height: 1.7 m Weight: 76.05 kg Last Vital Signs Temp 98.2 F 07/06/24 13:17 Pulse 64 07/06/24 13:17 BP 115/69 07/06/24 13:17 Pulse Ox 99 07/06/24 13:17 O2 Del Method Room Air 07/06/24 13:17 Allergies Allergy/AdvReac Type Severity Reaction Status Date / Time No Known Allergies Allergy Verified 07/03/24 09:59 Home Medications ?Medication ?Instructions ?Recorded ?Confirmed ?Type omeprazole 40 mg capsule,delayed 40 mg PO DAILY #90 caps 04/02/23 07/03/24 Rx release atorvastatin 10 mg tablet 10 mg PO DAILY #90 tabs 09/07/23 07/03/24 Rx fluticasone propionate 50 1 spray intranasal BID #16 grams 03/27/24 07/03/24 Rx mcg/actuation nasal spray,suspension Patient hx anesthesia problems: none Family hx anesthesia problems: none Results Review: All pre-operative results and documents have been reviewed as part of the pre- operative evaluation. [facility] Past Medical History Medical History Prediabetes HLD (hyperlipidemia) SOB (shortness of breath) on exertion Claustrophobia Acute sinusitis Mixed hyperlipidemia Colon cancer screening Wellness examination Vasovagal syncope Tinnitus, bilateral Stress Pain of upper abdomen Lumbar disc disease Impacted cerumen of right ear Gastroesophageal reflux disease without esophagitis Acute bilateral low back pain with bilateral sciatica Mixed hyperlipidemia Elevated blood sugar Arthritis GERD (gastroesophageal reflux disease) Surgical History Surgical History Hx of elbow surgery H/O sinus surgery H/O thumb surgery Family History Family History Mother Family history of rheumatoid arthritis Social History Social History (Updated 06/29/24 @ 09:03 by Humberto Welch MA) Smoking status: Never smoker Second hand tobacco smoke exposure: No Alcohol intake: never Alcohol use details: seldom; socially. 4 beers/month Substance use: never Substance use type: does not use Do You Feel Safe in your Home?: Yes Lack of Transportation: No Lack of Food: Never True Current Housing: I Have Housing Concerned About Future Housing: No Difficulty Paying Gas/Electric Bills: No Difficulty Paying for Meds: No Currently Unemployed: No Education: Associate Degree Difficulty w/ Childcare or Family Care: No Living arrangements: with family Occupation/Education: occupation Additional occupation/education comments: [employer] Gender identity (if verbalized by the patient): Male Spiritual care concerns: No Anes - Eval Final PreProcedure Day of Procedure 07/06/24 13:45 Patient weight: normal Heart: regular rate and rhythm Lungs: clear to auscultation Airway: Mallampati scale class II Neurological: alert and oriented Last oral intake: >/= 8 hours ASA classification: II Emergent: no Anesthetic plan: proceed Anesthesia type and monitoring: general ETT and standard monitoring Results Review: All pre-operative results and documents have been reviewed as part of the pre- operative evaluation. Informed Consent: The patient's anesthetic plan and its attendant risks and benefits were discussed with the patient/family/POA. Questions were solicited and answers provided to the satisfaction of the patient/family/POA.
[2024-07-06] MEDS: ceFAZolin 2 GM/D5W 50 ML 2 GM/50 ML BAG IVPB (14:03)
[2024-07-06] MEDS: BUPIVACAINE/EPINEPHRINE 0.5% 50 ML VIAL 30 ML INFILTRATE (14:39)
--- NOTE | 2024-07-06 15:56 | W.PM.PROC2 ---
Procedure Note - Detailed Date of Procedure 07/06/24 Pre-op Diagnosis Chronic Cholecystitis with Stones Post-op Diagnosis Same Procedure Performed Laparoscopic cholecystectomy Surgeon Ludwin Guevara MD Billet Examin[employer] [place] [facility] Anesthesia General and Local Indications Patient has had right upper quadrant postprandial abdominal pain off and on for 3 years. It has been getting worse. His imaging showed gallstones but no signs of acute inflammation. He is taken to surgery now for laparoscopic cholecystectomy. Findings Chronic inflammation, gallstones, no biliary ductal dilatation, no liver abnormalities Description of Procedure Patient was taken to surgery and induced into general anesthesia. The abdomen is prepped and draped. Trocars were placed in the usual fashion using [facility] optical trocars and a 5 mm camera. The gallbladder was decompressed with a laparoscopic aspirator. The gallbladder was then retracted anterosuperiorly. Traction was placed on the infundibulum. Dissection was carried out in the triangle of [place]ot. The cystic duct and cystic artery were carefully dissected. The gallbladder was dissected off the liver over its lower 3rd. Critical view was achieved. The cystic artery and cystic duct were then securely clipped and divided. Gallbladder was then dissected free of its remaining attachments to liver. Cautery was used for hemostasis throughout. Once the gallbladder was freed from the liver, it was placed in an Endo-Catch bag. It was retrieved through the 10 11 epigastric trocar site. The trocar site had to be enlarged slightly to accommodate the gallbladder. We replaced the epigastric trocar and closed off the skin and subcu so it we could re ends deflate. The liver was again retracted and the gallbladder fossa and as well as the right upper quadrant were inspected. Irrigation and suctioning were carried out repeatedly. Some additional cautery in the gallbladder fossa was carried out. All looked good with no evidence of bleeding or bile leakage. We then evacuated CO2 and removed the trocar sleeves. The fascia at the epigastric trocar site was closed with [id number] 0 Vicryl suture. All skin wounds were closed running 4-0 Monocryl subcuticular skin suture. The wounds were dressed with Exofin surgically adhesive. The patient was then awakened and taken to recovery in good condition. Sponge and needle counts were correct x2. Estimated Blood Loss -30 Drains No Packing No Pathology Yes (Gallbladder) Complications None Condition Stable Disposition PACU [facility] Billing Surgery - Charge Forward: Surgery Billing (Laparoscopic cholecystectomy)
[2024-07-06] MEDS: fentaNYL CITRATE INJ (*CRX) 100 MCG/2 ML VIAL 25 MCG IV PUSH ×4 (15:59→16:11)
[2024-07-06] MEDS: ONDANSETRON INJ 4 MG/2 ML VIAL IV PUSH (16:52)
== END 2024-07-06 17:40 | disposition home or self-care (01) ==
PROVIDERS: PCP Family Medicine; Visit Provider Surgery
PROC: 0FT44ZZ Resection of Gallbladder, Percutaneous Endoscopic Approach (ICD-10-PCS; CPT 47562; principal; 2024-07-06 13:30)
DX: K80.10 Calculus of gallbladder with chronic cholecystitis without obstruction (principal); G89.18 Other acute postprocedural pain; R73.03 Prediabetes; E78.2 Mixed hyperlipidemia; K21.9 Gastro-esophageal reflux disease without esophagitis; F40.240 Claustrophobia; M51.86 Other intervertebral disc disorders, lumbar region; M19.90 Unspecified osteoarthritis, unspecified site; Z98.890 Other specified postprocedural states
CPT/HCPCS: 47562; 88304; A9270; J0690; J1100; J1171; J1885; J2003; J2250; J2371; J2405; J2704; J3010; J7120

== ENCOUNTER 2025-03-29 06:49 | Outpatient (CLI) | payer BC, SELFPAY ==
--- NOTE | ~2025-03-29 | XR_ITS ---
EXAMINATION: XR shoulder LT min 2V DATE: 03/29/2025 07:19 INDICATION: Pain TECHNIQUE: Left shoulder x-rays were obtained. COMPARISON: None. 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 No acute or aggressive bony or soft tissue process seen. IMPRESSION: 1. Mild degenerative changes with no acute or aggressive bony or soft tissue process seen. 2. For persisting shoulder pain refractory to conservative therapy, correlation with shoulder MRI suggested for optimal sensitivity. Reviewed, dictated and finalized at location A. DATABASE ADMINISTRATOR IMPRESSION: 1. Mild degenerative changes with no acute or aggressive bony or soft tissue pr ocess seen. 2. For persisting shoulder pain refractory to conservative therapy, correlation with shoulder MRI suggested for optimal sensitivity.
== END 2025-03-29 06:50 | disposition home or self-care (01) ==
LOC: MICIMG 06:51
PROVIDERS: PCP Student in an Organized Health Care Education/Training Program; Visit Provider Student in an Organized Health Care Education/Training Program
DX: M19.012 Primary osteoarthritis, left shoulder (principal)
CPT/HCPCS: 73030